=== PATIENT | male | born 1960 | race Caucasian/White ===

== ENCOUNTER → 2019-06-15 | Outpatient (CLI) | payer BC, OTHER | LOC: CAT 12:01 | DX: K76.0 Fatty (change of) liver, not elsewhere classified (principal); N30.00 Acute cystitis without hematuria; K57.30 Diverticulosis of large intestine without perforation or abscess without bleeding; M47.816 Spondylosis without myelopathy or radiculopathy, lumbar region ==

== ENCOUNTER → 2019-06-16 | Outpatient (CLI) | payer BC, OTHER | LOC: ULTRA 08:01 | DX: N28.89 Other specified disorders of kidney and ureter (principal); R94.4 Abnormal results of kidney function studies; S35.49 Other specified injury of renal blood vessel; Z90.5 Acquired absence of kidney ==

== ENCOUNTER → 2019-06-29 | Outpatient (CLI) | payer BC, OTHER | LOC: CAT 11:21 | DX: K76.0 Fatty (change of) liver, not elsewhere classified (principal); N28.89 Other specified disorders of kidney and ureter; Z90.5 Acquired absence of kidney ==